=== PATIENT | male | born 1960 | race Caucasian/White ===

== ENCOUNTER 2019-05-03 13:06 | Outpatient (CLI) | payer BC ==
--- NOTE | 2019-05-03 14:41 | Diagnostic Imaging Report ---
Indication: Trauma and chest pain. Comparison: None Findings: 4 views of the right chest wall was obtained for evaluation of the ribs. There are multiple subacute fractures of anterolateral ribs in the lower thoracic rib cage. Fractures involve the seventh through 11th ribs laterally and anterolaterally in location. There is callus formation. There is no pneumothorax. IMPRESSION: Multiple subacute rib fractures
== END 2019-05-03 15:06 | disposition home or self-care (01) ==
LOC: RAD 13:06
DX: R10.9 Unspecified abdominal pain (principal); S22.41XA Multiple fractures of ribs, right side, initial encounter for closed fracture; X58.XXXA Exposure to other specified factors, initial encounter; Y92.9 Unspecified place or not applicable